=== PATIENT | male | born 2000 | race Caucasian/White ===

== ENCOUNTER 2020-11-17 09:47 | Day surgery (SDC) | payer BC, SELFPAY ==
[2020-11-11 16:10] VITALS: BMI 23.3
--- NOTE | 2020-11-16 09:29 | HO.ANESPROP2 ---
Documented by User: Swati Valadez 11/23/20 08:33 HPI - Anesthesia Eval Consult details Narrative: 20yo M for Upper Endoscopy PONV with multiple EGDs [facility] Past Medical History Medical History (Updated 11/11/20 @ 16:08 by Tamica Henao) GERD (gastroesophageal reflux disease) PONV (postoperative nausea and vomiting) Vomiting Surgical History Surgical History (Updated 11/11/20 @ 16:08 by Tamica Henao) History of esophagogastroduodenoscopy (EGD) Hx of shoulder surgery Social History Social History (Updated 11/11/20 @ 16:08 by Tamica Henao) Alcohol intake: never Smoking Status: Never smoker Use of substances other than those prescribed or required for medical reasons: No Substance Use Type: Marijuana Substance Use Frequency: Occasionally Have you been hit, kicked, punched, or otherwise hurt by someone within the past year? If so, by whom?: No Advance Directives: No Advance Directives Information Provided: No Advance Directives on File: No Meds Allergies Allergy/AdvReac Type Severity Reaction Status Date / Time amoxicillin Allergy Rash Verified 11/17/20 10:21 Home Medications Medication Instructions Recorded Confirmed Last Taken Type omeprazole 11/17/20 11/17/20 05:30 History Exam Exam Date and Time: November 16, 2020 0929 Height,Weight and Vital Signs: Height 5 ft 6 in Weight 65.771 kg Assessment and Plan Assessment Anesthesia Assessment: Chart Reviewed Documented by User: Tatiana Duckworth 11/24/20 14:27 [facility] Past Medical History Medical History (Updated 11/11/20 @ 16:08 by Tamica Henao) GERD (gastroesophageal reflux disease) PONV (postoperative nausea and vomiting) Vomiting Surgical History Surgical History (Updated 11/11/20 @ 16:08 by Tamica Henao) History of esophagogastroduodenoscopy (EGD) Hx of shoulder surgery Social History Social History (Updated 11/11/20 @ 16:08 by Tamica Vela Alcohol intake: never Smoking Status: Never smoker Use of substances other than those prescribed or required for medical reasons: No Substance Use Type: Marijuana Substance Use Frequency: Occasionally Have you been hit, kicked, punched, or otherwise hurt by someone within the past year? If so, by whom?: No Advance Directives: No Advance Directives Information Provided: No Advance Directives on File: No Meds Allergies Allergy/AdvReac Type Severity Reaction Status Date / Time amoxicillin Allergy Rash Verified 11/17/20 10:21 Home Medications Medication Instructions Recorded Confirmed Last Taken Type omeprazole 11/17/20 11/17/20 05:30 History Exam Height,Weight and Vital Signs: Vital Signs Temp Pulse Resp BP Pulse Ox 98.0 F 57 18 119/72 99 11/17/20 10:30 11/17/20 10:30 11/17/20 10:30 11/17/20 10:30 11/17/20 10:30 Airway Mallampati Class: II TM Dist: >3cm Neck ROM: Full Heart: RRR Lungs: CTAB Assessment and Plan Assessment Anesthesia Assessment: Anesthesia Plan Discussed and Chart Reviewed Final Anesthetic Review NPO: Yes ASA Class: II Final Preanesthetic Review: No Changes in Pt Med Stat, Meds/Allgs Chart Reviewed, Consent Obtained/Reviewed and Anes Risks/Benef Reviewed Patient Risk: Low Procedure Risk: Low Assessment/Block/Sedation in SS: Assess/Block/Sedation-SS Anesthetic Plan Anesthetic Plan: MAC: Disposition: Standard PACU
[2020-11-17 10:30] VITALS: BP 119/72; PULSE 57; RESP 18; TEMP 36.7; O2SAT 99
[2020-11-17] MEDS: Lactated Ringers 1,000 ML 100 ML IVCONT (10:38)
[2020-11-17] MEDS: Scopolamine 1.5 MG PATCH.TD.3 TRANSDERMA (10:47)
--- NOTE | 2020-11-17 11:04 | MHC.SHP ---
Pre-Procedural Eval Section A The patient is an INPATIENT: No Changes since office visit: No Cold of Flu in the past 2 weeks, No New Medical Problems, No Changes in Medication and No Patient answered all questions The History & Physical has been completed within 30 days and I have reviewed it.: Yes Section B Chief Complaint: reflux disease Allergies: Allergies Allergy/AdvReac Type Severity Reaction Status Date / Time amoxicillin Allergy Rash Verified 11/17/20 10:21 Plan I have reviewed the history and physical and performed a pertinent physical examination on my patient. No changes have occurred unless specified.
[2020-11-17 11:23] VITALS: BP 110/49; PULSE 73; RESP 14; TEMP 37.1; O2SAT 98
--- NOTE | 2020-11-17 11:26 | PM.OP ---
Brief Operative Note Date of Service: 11/17/20 Pre-op diagnosis: gerd Post-op diagnosis: same Procedure: egd Surgeon: Jv Hobson Anesthesia: MAC Estimated blood loss (mL): 5 Pathology: other (bxs antrum duodenum and egj) Condition: stable Disposition: PACU
[2020-11-17 11:37] VITALS: BP 106/58; PULSE 59; RESP 18; O2SAT 98
--- NOTE | 2020-11-17 11:43 | OP_ITS ---
SURGEON: Jv Hobson MD INDICATIONS: Gastroesophageal reflux disease. PREOPERATIVE DIAGNOSIS: POSTOPERATIVE DIAGNOSIS: PROCEDURE PERFORMED: Upper endoscopy with biopsy. ESTIMATED BLOOD LOSS: COMPLICATIONS: ANESTHESIA: ASSISTANTS: SPECIMENS: MEDICATIONS: Monitored anesthesia care. DESCRIPTION OF PROCEDURE: History and physical performed. The risks and benefits of the procedure were explained to the patient. Informed consent was obtained. The patient was placed in the left lateral decubitus position. The Olympus video gastroscope was introduced into the esophagus, stomach, and duodenum. Examination was performed and the scope was removed. He tolerated the procedure well and was returned to recovery area in stable condition. FINDINGS: Esophagus: The esophagus showed an irregular EG junction. This was biopsied. Stomach: Stomach showed no evidence of masses, ulcers, or polyps. Antral biopsies were obtained to rule out H pylori. Duodenum: The bulb and second portion were normal. Biopsies were obtained from the second portion. IMPRESSION: Gastroesophageal reflux disease. RECOMMENDATION: Follow up the biopsy results. MD KELI Nesbitt/MODL / [id number]
== END 2020-11-17 12:10 | disposition home or self-care (01) ==
PROVIDERS: PCP Internal Medicine; Visit Provider Internal Medicine Gastroenterology
PROC: 0DJ08ZZ Inspection of Upper Intestinal Tract, Via Natural or Artificial Opening Endoscopic (ICD-10-PCS; CPT 43235; principal; 2020-11-17 10:50)
DX: K21.9 Gastro-esophageal reflux disease without esophagitis (principal); F12.90 Cannabis use, unspecified, uncomplicated
CPT/HCPCS: 43239; 88305; 88342; J3010

== ENCOUNTER 2025-04-23 14:43 | Emergency (ER) | payer BC, SELFPAY ==
--- OUTSIDE RECORDS SUMMARY | 2024-07-11 11:55 | XMS_ITS ---
Author Organization [facility] Address [address] [place] [phone] Care Team Providers Care Electric Needle Specialist Name Role Phone Saravanan Blake MD Primary Care Provider Ashtyn Hobson Jr, Jv Hernandez REASON FOR VISIT Patient presents today for ABDOMINAL PAIN Encounters Encounter Location Date Provider Diagnosis [facility] [address] [place] [phone] 07/11/2024 Jv Hobson Jr Plan Of Treatment No Information Progress Notes * JAGJIT RIOSDOB:2000 (24 yo M)Acc No.[id number]:07/11/2024 Progress Notes Patient: JAGJIT KENT Provider: Juan Luis Hobson MD :2000 A ge:23 Y S ex:Male Date:07/11/2024 Address:[address] [place] [address] Pcp:Saravanan Blake MD Subjective: * Chief Complaints: * 1 . Patient presents today for ABDOMINAL PAIN. * Medical History: Objective: * Vitals: Assessment: Plan: * Treatment: * * The named appointment provid er may or may not be the originator of this progress note, and it is not deemed complete until electronically signed by the appointment provider. Sign off status: Pending * Provider: Juan Luis Hobson MD Date: 1 Generated for Printi ng/Faxing/eTransmitting on: 0 04/23/2025 04:29 PM EDT
--- OUTSIDE RECORDS SUMMARY | 2025-02-04 11:00 | XMS_ITS ---
Author Organization [facility] [address] Address [address] [place] [address] Care Team Providers Care Therapist Speech Name Role Phone SHANTELL FISH Unavailable [phone] Encounters Encounter Location Date Provider Diagnosis [facility] [address] [place] [address] 02/04/2025 SHANTELL FISH Plan Of Treatment No Information Progress Notes * Jamil RIOSDOB:2000 (24 yo M)Acc No.[id number]:02/04/2025 CPE Patient: Jamil KENT Provider: June FISH PA-C :2000 A ge:24 Y S ex:Male Date:02/04/2025 Address:[address] [place] [address] Subjective: * Chief Complaints: * * Medical History: Objective: * Vitals: Assessment: Plan: * Treatment: * Images: Billing Information: * Visit Code: * Procedure Codes: Care Plan Details* * Electronic signature of HECTOR FISH PA-C on 04/23/2025 at 04:29 PM EDT Sign off status: Pending * Provider: June FISH PA-C Date: 02/04/2025 Generated for [place]/Faron/eTransmitting on: 04/23/2025 04:29 PM EDT
[2025-04-23 14:49] VITALS: BP 136/79; PULSE 108; RESP 18; TEMP 36.2; O2SAT 98; BMI 21.6
--- NOTE | 2025-04-23 14:49 | ECG_ITS ---
Test Reason : NEAR SYNCOPE Blood Pressure : */* mmHG Vent. Rate : 67 BPM Atrial Rate : 67 BPM P-R Int : 146 ms QRS Dur : 98 ms QT Int : 386 ms P-R-T Axes : 69 84 73 degrees QTcB Int : 407 ms Poor data quality, interpretation may be adversely affected Sinus rhythm with marked sinus arrhythmia Otherwise normal ECG No previous ECGs available Referred By: Rachelle Gaines Electronically Signed By: ROSA M JONES
--- NOTE | 2025-04-23 14:50 | ED.GENADULT ---
HPI - General Adult General Chief complaint: General Medical Stated complaint: Heat Stroke, Vomiting, cant stand Related Data Home Medications ?Medication ?Instructions ?Recorded ?Confirmed omeprazole 11/17/20 Allergies Allergy/AdvReac Type Severity Reaction Status Date / Time amoxicillin Allergy Rash Verified 11/17/20 10:21 haloperidol (From Haldol) Allergy Anxiety Verified 04/23/25 14:50 COUNTS INCLUDE 234 BEDS AT THE [facility] Past Medical History Medical History (Updated 04/23/25 @ 23:06 by MELBA Christine) PONV (postoperative nausea and vomiting) Vomiting GERD (gastroesophageal reflux disease) Surgical History (Updated 11/11/20 @ 16:08 by Tamica Henao, RN) History of esophagogastroduodenoscopy (EGD) Hx of shoulder surgery Social History Social History (Updated 11/11/20 @ 16:08 by Tamica Henao, RYAN) Alcohol intake: never Substance Use Type: Marijuana Advance Directives: No Advance Directives Information Provided: No Do you have a plan to hurt others: No Plan Physical Exam ED Vital Signs: Vital Signs - 24 hr 04/23/25 14:49 Temperature 97.2 F Pulse Rate 108 H Respiratory Rate 18 Blood Pressure 136/79 Pulse Oximetry 98 Oxygen Delivery Method Room Air BMI result Body Mass Index 21.6 Course Course Course Narrative: MELBA Christine 04/23/25 1458 This is a Rapid Medical Examination (RME) performed by Sylvain Gaines PA-C in triage. Full HPI, ROS, assessment and treatment plan per primary provider in the Main ED. Hx: 24 yo M here w/ concerns for heat stroke . states he has been working out in the heat all day, approx 30 mins ago became dizzy, nauseous, seeing stars . feeling like he is going to pass out. PE/vitals: patient chugged water in triage then began to vomit up the water - zofran given. uncomfortable appearing however exam benign. ambulated into ED with steady gait. Plan: screening labs, EKG, UA jumpbasting canvas baster aware - patient to be brought back to bed when there is a bed available. Medications Administered Discontinued Medications Generic Name Dose Route Start Last Admin Trade Name Freq PRN Reason Stop Dose Admin Ondansetron HCl 4 mg 04/23/25 14:50 04/23/25 14:53 Ondansetron Odt 4 Mg Tab.Rapdis TRANSLINGU 04/23/25 14:51 4 mg ONCE ONE Administration Medical Decision Making Lab Data 04/23/25 15:34 04/23/25 15:34 Labs: Lab Results 04/23/25 Range/Units 15:34 WBC 14.2 H (4.8-10.8) X10*3/uL RBC 5.00 (4.60-5.80) X10*6/uL Hgb 15.5 (14.0-18.0) g/dl Hct 43.5 (42.0-52.0) % MCV 87.0 (80.0-98.0) fL MCH 31.0 (27.0-33.0) pg MCHC 35.6 (31.0-36.0) g/dl RDW 11.7 (11.0-16.0) % Plt Count 200 (160-400) X10*3/uL MPV 10.8 (9.4-12.4) fL Immature Gran % (Auto) 0.4 (0.0-0.4) % Neut % (Auto) 89.3 H (45-73) % Lymph % (Auto) 4.6 L (20-40) % [place] % (Auto) 5.7 (2-11) % Eos % (Auto) 0.0 (0-4) % Baso % (Auto) 0.0 (0-2) % Lymph # (Auto) 0.1 L (1.2-4.9) X10*3/uL [place] # (Auto) 0.2 (0.1-1.2) X10*3/uL Eos # (Auto) 0.0 (0.0-0.4) X10*3/uL Baso # (Auto) 0.0 (0.0-0.2) X10*3/uL Abs Immat Gran (auto) 0.01 (0.00-0.03) X10*3/uL Absolute Neuts (auto) 2.5 (2.0-8.3) x10*3/uL Absolute Nucleated RBC 0.000 (0.0-0.012) X10*3/uL Nucleated RBC % (auto) 0.0 (0.0-0.2) /100WBC Smear Tech's Comments VERIFIED Sodium 143 (135-145) mmol/L Potassium 3.7 (3.3-5.1) mmol/L Chloride 106 (96-108) mmol/L Carbon Dioxide 23 (22-29) mmol/L Anion Gap 18 (12-20) BUN 18 H (9-16) mg/dL Creatinine 1.09 (0.5-1.4) mg/dL Estim Creat Clear Calc 85.6 Estimated GFR > 60 Random Glucose 131 H (60-115) mg/dL Calcium 10.7 H (8.4-10.2) mg/dL Magnesium 2.0 (1.6-2.6) mg/dL Total Bilirubin 1.0 (0.0-1.0) mg/dL AST 43 H (5-37) U/L ALT 37 (0-40) U/L Alkaline Phosphatase 64 (39-117) U/L Total Protein 7.9 (6.5-8.0) g/dL Albumin 5.4 H (3.5-5.0) g/dL Lipase 193 H (8-78) U/L Discharge Plan Discharge Clinical Impression: Vomiting Patient Disposition: Left W/O Completing Treatment Prescriptions: No Action omeprazole Discharge Date/Time: 04/23/25 16:15
[2025-04-23 15:56] LABS: Alanine Aminotransferase 37 U/L (0-40); Albumin Level 5.4 g/dL (3.5-5.0); Alkaline Phosphatase 64 U/L (39-117); Anion Gap 18 (12-20); Aspartate Amino Transferase 43 U/L (5-37); Blood Urea Nitrogen 18 mg/dL (9-16); Calcium 10.7 mg/dL (8.4-10.2); Carbon Dioxide 23 mmol/L (22-29); Chloride 106 mmol/L (96-108); Creatinine Clr Calc Pharmacy 85.6; Estimated Glomerular Filt Rate > 60; Lipase 193 U/L (8-78); Magnesium 2.0 mg/dL (1.6-2.6); Potassium 3.7 mmol/L (3.3-5.1); Sodium 143 mmol/L (135-145); Total Protein 7.9 g/dL (6.5-8.0)
--- NOTE | 2025-04-23 16:02 | PC.NURSE ---
walking out of ED and in the parking lot with NAD and steady gait
[2025-04-23 16:21] LABS: Imm Gran Abs Auto 0.01 X10*3/uL (0.00-0.03); Imm Gran Pct Auto 0.4 % (0.0-0.4); Lymphocytes Absolute Auto 0.1 X10*3/uL (1.2-4.9); MANUAL DIFF FLAG SCAN; Mean Corpuscular HGB Conc 35.6 g/dl (31.0-36.0); Mean Corpuscular Hemoglobin 31.0 pg (27.0-33.0); Mean Corpuscular Volume 87.0 fL (80.0-98.0); NRBC Abs Auto 0.000 X10*3/uL (0.0-0.012); NRBC Pct Auto 0.0 /100WBC (0.0-0.2); PLT CLUMP 1; SCAN SMEAR FLAG 1
[2025-04-23 16:22] LABS: White Blood Count 14.2 X10*3/uL (4.8-10.8)
[2025-04-23 16:23] LABS: Hematocrit 43.5 % (42.0-52.0); Hemoglobin 15.5 g/dl (14.0-18.0); Platelet Count 200 X10*3/uL (160-400); Red Blood Count 5.00 X10*6/uL (4.60-5.80)
--- OUTSIDE RECORDS SUMMARY | 2025-04-23 16:29 | XMS_ITS | Clinical Summary ---
Author Organization [facility] Address [address] [place] [address] Care Team Providers Care Solar Energy Systems Engineer Name Role Phone TorreySaravanan lyles Primary Care Provider [phone] Allergies Active Allergy Reactions Criticality Noted Date Comments Amoxicillin 01/16/2023 Medications No known medications Active Problems No known active problems Social History Tobacco Use Types Packs/Day Years Used Date Smoking Tobacco: Never Assessed Sex and Gender Information Value Date Recorded Sex Assigned at Male 01/16/2023 4:13 PM EDT Gender Identity Not on file Sexual Orientation Not on file Job Start Date Occupation Industry Not on file Not on file Not on file Last Filed Vital Signs Vital Sign Reading Time Taken Comments Blood Pressure 128/64 01/16/2023 8:36 PM EDT Pulse 82 01/16/2023 8:36 PM EDT Temperature 36.7 C (98 F) 01/16/2023 8:36 PM EDT Respiratory Rate 18 01/16/2023 8:36 PM EDT Oxygen Saturation 97% 01/16/2023 8:36 PM EDT Inhaled Oxygen Concentration - - Weight 65.8 kg (145 lb) 01/16/2023 4:02 PM EDT Height 167.6 cm (5' 6 ) 01/16/2023 4:02 PM EDT Body Mass Index 23.4 01/16/2023 4:02 PM EDT Plan of Treatment Health Maintenance Due Date Last Done Comments Hepatitis B Vaccines (1 of 3 - 3-dose series) 1998 Hepatitis C Screening 1998 COVID-19 Vaccine (#1) 01/20/1999 Depression Screening 2010 Preventative Health Evaluation 2016 DTap / Tdap / Td (1 - Tdap) 2017 Influenza Vaccine (#1) 2025 Pneumococcal Vaccine Aged Out No long er eligible based on patient's age to complete this topic RSV Ped < 20 months Aged Out No longe r eligible based on patient's age to complete this topic Care Teams Solar Energy Systems Engineer Relationship Specialty Start Date End Date Saravanan Blake DO [address] [place] [id number] PCP - General Internal Medicine 01/16/23
--- OUTSIDE RECORDS SUMMARY | 2025-04-23 16:29 | XMS_ITS | Clinical Summary ---
Author Organization [facility] Address [id number] [place] [phone] Care Team Providers Care Driver Operator Name Role Phone Saravanan Blake DO Primary Care Provider [phone] Social History Tobacco Use Types Packs/Day Years Used Date Smoking Tobacco: Never Assessed Sex and Gender Information Value Date Recorded Sex Assigned at Not on file Legal Sex Male 11:16 PM EST Gender Identity Not on file Sexual Orientation Not on file Obstetrics History Plan of Treatment Health Maintenance Due Date Last Done Comments HPV Vaccines (1 - Male 3-dos e series) 2013 DTaP,Tdap,and Td Vaccines (1 - Tdap) 2017 Hepatitis B Vaccines (1 of 3 - 19+ 3-dose series) 2017 HIV Screening 08/21/2022 Hepatitis C Screening 08/21/2022 Social Influencers of Health Screening 08/21/2022 COVID-19 Vaccine (1 - 2023-2 5 season) 2024 Depression Screening 09/18/2024 Influenza Vaccine (#1) 2025 HIB Vaccines Aged Out No longer eligi ble based on patient's age to complete this topic Hepatitis A Vaccines Aged Out No long er eligible based on patient's age to complete this topic IPV Vaccines Aged Out No longer eligi ble based on patient's age to complete this topic MMR Vaccines Aged Out No longer eligi ble based on patient's age to complete this topic Meningococcal ACWY Vaccine Aged Out N o longer eligible based on patient's age to complete this topic Meningococcal B Vaccine Aged Out No l onger eligible based on patient's age to complete this topic Pneumococcal Vaccine: Pediat rics (0 to 5 Years) and At-Risk Patients (6 to 49 Years) Aged Out No longer eligible b ased on patient's age to complete this topic RSV Immunization Patients Un brandy 20 months Aged Out No longer eligible b ased on patient's age to complete this topic Varicella Vaccines Aged Out No longer eligible based on patient's age to complete this topic Care Teams Driver Operator Relationship Specialty Start Date End Date Saravanan Blake DO [address] [place] [phone] PCP - General 01/16/23
--- OUTSIDE RECORDS SUMMARY | 2025-04-23 16:29 | XMS_ITS | Clinical Summary ---
Author Organization [facility] Address [address] [place] [phone] Phone Care Team Providers Care Advertising Campaign Manager Name Role Phone Unavailable Primary Care Provider Unavailabl e Medications omeprazole 20 MG delayed-release capsule Omeprazole; 0; 12/08/2016; Active 12/08/2016 Active Active Problems Problem Noted Date Diagnosed Date Low back pain 12/24/2015 Overview (05/17/2019): Low back pain (724.2) Onset: 12/24/2015 Added by: Ricardo March Other acne 05/08/2014 Overview (05/17/2019): Acne (706.1) Onset: 05/08/2014 Added by: Ricardo March Pure hypercholesterolemia 11/07/2012 Overview (05/17/2019): Familial hypercholesterolemia (272.0) Onset: 11/07/2012 Added by: Ricardo March Immunizations Immunization Administration Dates Next Due DTaP 5 04/23/2004, 0,01/26/1999,12/01,1998 HPV Vaccine 9 Valent 06/01/2016,07/22/2015,05/22 Hep A, ped/adol 05/22/2015,05/08/2014 Hep B, ped/adol 04/22/1999,1998,1998 Hib (PRP-T) 11/03/1999, 9,1998,09/29 IPV 11/07/2002, 0,1998,09/29 Influenza, injectable, quadr ivalent, preservative free 07/22/2015,06/27/2013 Influenza, injectable, trivalent 07/09/2014 Influenza, injectable, triva lent, preservative free 06/11/2010,07/31/2009,07/25/2008,07/17,07/07/2006,08/16/2005 MMR 04/23/2004,11/03/1999 Meningococcal Conj (Menactra) MCV4P 06/01/2016,1 10/10/2009 Tdap 11/20/2017,07/31/2009 Varicella 08/10/2010,08/02/1999 Social History Tobacco Use Types Packs/Day Years Used Date Smoking Tobacco: Never Comments:Never Smoker Sex and Gender Information Value Date Recorded Sex Assigned at Not on file Legal Sex Male 6:40 PM EDT Gender Identity Not on file Sexual Orientation Not on file Last Filed Vital Signs Vital Sign Reading Time Taken Comments Blood Pressure - - Pulse 76 10/06/2017 2:52 PM EST Temperature 36.9 C (98.4 F) 10/06/2017 2:52 PM EST Respiratory Rate - - Oxygen Saturation 97% 10/06/2017 2:52 PM EST Inhaled Oxygen Concentration - - Weight 75 kg (165 lb 6.4 oz) 10/06/2017 2:52 PM EST Height 165.7 cm (5' 5.25 ) 10/06/2017 2:52 PM ES T Body Mass Index 27.31 10/06/2017 2:52 PM EST Plan of Treatment Health Maintenance Due Date Last Done Comments COVID-19 Vaccine ( season) 2024 Influenza Vaccines (#1) 2025 07/22/20 15, 07/09/2014, 06/27/2013, Additional history exists DTaP,Tdap,and Td Vaccines (8 - Td or Tdap) 11/21/2027 11/20/2017, 07/31/2009, 04/23/2004, Additional history exists Hepatitis B Vaccines Completed 04/22/1999, 1998, 1998 HIB Vaccines Completed 11/03/1999, 01/16, 1998, Additional history exists IPV Vaccines Completed 11/07/2002, 01/2000, 1998, Additional history exists MMR Vaccines Completed 04/23/2004, 11/03/1999 Varicella Vaccines Completed 08/10/2010, 08/02/1999 Hepatitis A Vaccines Completed 05/22/2015, 05/08/20 14 HPV Vaccines Completed 06/01/2016, 12/2014, 05/22/2015 Meningococcal Vaccine Completed 06/01/2016, 010 Men B Vaccine Aged Out No longer elig ible based on patient's age to complete this topic Pneumococcal Vaccine Aged Out No long er eligible based on patient's age to complete this topic Insurance [facility] PPO
--- OUTSIDE RECORDS SUMMARY | 2025-04-23 16:29 | XMS_ITS | Referral Summary ---
Author Organization [facility] Address [address] [place] [address] Care Team Providers Care Assistant Food Service Manager Name Role Phone Saravanan Blake Primary Care Provider [phone] Allergies Active Allergy Reactions Criticality Noted Date Comments Amoxicillin Hives 11/01/2018 Medications ranitidine (ZANTAC) 150 mg tablet Take 1 tablet (150 mg total) by mouth daily as needed for heartburn or indigestion. 30 tablet 1 9 Active valACYclovir (VALTREX) 1 gram tablet Take 2 tablets (2,000 mg total) by mouth 2 times a day as needed (cold sores). 60 tablet 2 9 Active naproxen (NAPROSYN) 500 mg tabletIndications: Hip injury, left, sequela Take 1 tablet (500 mg total) by mouth 2 times a day with meals. 60 tablet 9 Active ondansetron (ZOFRAN ODT) 4 mg disintegrating tablet Dissolve 1 tablet (4 mg total) in the mouth every 8 hours as needed for nausea or vomiting. 12 tablet 3 Active Active Problems Problem Noted Date Diagnosed Date Gastroesophageal reflux disease with esophagitis 11/01/2018 Assessment & Plan (11/01/2018 9:34 PM EST): Patient with long history of gastroesophageal reflux, has been on Prilosec for most of his life. He is now taking only as needed. I advised him to try using Zantac which I am prescribing for him today as this is better for long-term use. We will also review old records from previous PCP. Herpes labialis 11/01/2018 Assessment & Plan (11/01/2018 9:34 PM EST): Patient with cold sores, has been on Valtrex as needed for outbreaks. He requires a refill of this which I provided for him today. Routine general medical exam ination at a health care facility 11/01/2018 Assessment & Plan (11/01/2018 9:34 PM EST): Healthy young male presenting today for routine physical. He previously had been overweight/obese but lost weight after a difficult breakup. His mood is now stable his PHQ 9 was within normal limits. He is now eating better once again. I advised him to monitor his weight and to call if he continues to lose weight as his BMI is now in an ideal place. He expressed understanding and agreement with this plan. He verbally consents to HIV testing as well as to chlamydia and gonorrhea testing which we will obtain today. He is up-to-date on his tetanus shot but declines the flu shot today. Social History Tobacco Use Types Packs/Day Years Used Date Smoking Tobacco: Never Smokeless Tobacco: Never Tobacco Cessation:Counseling Given: Not Answered Alcohol Use Standard Drinks/Week Comments Not Currently 0 (1 standard drink = 0.6 oz pur e alcohol) Sex and Gender Information Value Date Recorded Sex Assigned at Not on file Legal Sex Male 12:12 AM EDT Gender Identity Not on file Sexual Orientation Not on file Occupation Industry Job Start Date Job End Date [employer] Not on file Not on file Not on stuart e Last Filed Vital Signs Vital Sign Reading Time Taken Comments Blood Pressure 146/86 01/18/2023 3:35 AM EDT Pulse 93 01/18/2023 3:35 AM EDT Temperature 37 C (98.6 F) 01/18/2023 12:21 AM EDT Respiratory Rate 20 01/18/2023 3:35 AM EDT Oxygen Saturation 97% 01/18/2023 3:35 AM EDT Inhaled Oxygen Concentration - - Weight 65.8 kg (145 lb 1 oz) 01/17/2023 8:48 PM EDT Height 165.1 cm (5' 5 ) 11/01/2018 9:21 AM EST Body Mass Index 24.14 11/01/2018 9:21 AM EST Plan of Treatment Not on file Insurance [employer] HMO/POS Care Teams Assistant Food Service Manager Relationship Specialty Start Date End Date Saravanan Blake [address] [place] [phone] PCP - General Internal Medicine 01/17/23
== END 2025-04-23 16:15 | disposition left against medical advice (07) ==
LOC: HO.ED 16:13
PROVIDERS: Physician Assistant Medical; Emergency Provider Emergency Medicine; PCP Internal Medicine
DX: R11.2 Nausea with vomiting, unspecified (principal); T67.01XA Heatstroke and sunstroke, initial encounter; R11.10 Vomiting, unspecified; I49.8 Other specified cardiac arrhythmias; Z79.899 Other long term (current) drug therapy
CPT/HCPCS: 36415; 80053; 83690; 83735; 85025; 93005; 99283

== ENCOUNTER → 2025-04-23 14:49 | Outpatient (BNV) | payer BC, SELFPAY | PROVIDERS: Emergency Provider Emergency Medicine; PCP Internal Medicine; Visit Provider Internal Medicine | DX: R55 Syncope and collapse (principal) | CPT/HCPCS: 93010 ==